=== PATIENT | female | born 1995 | race Asian ===

== ENCOUNTER → 2017-10-13 | Outpatient (CLI) | payer BC ==
--- NOTE | 2017-10-13 15:49 | Diagnostic Imaging Report ---
PROCEDURE: X-RAY CHEST, TWO VIEWS COMPARISON: None. INDICATIONS: TB SCREENING FINDINGS: LUNGS: Clear. Pulmonary vascular markings are normal. PLEURA: No effusions or pneumothorax. HEART \T\ MEDIASTINUM: The cardiomediastinal silhouette is normal. No lymphadenopathy. BONES \T\ SOFT TISSUES: No focal osseous lesions. Soft tissues are unremarkable. CONCLUSION: No acute thoracic abnormality. Dictated by: Yoan Cook M.D. on 10/13/2017 at 15:50 Electronically approved by: Yoan Cook M.D. on 10/13/2017 at 15:50
== END ==
LOC: RAD 14:35
PROVIDERS: ATTEND Specialist
DX: Z11.1 Encounter for screening for respiratory tuberculosis (principal)
CPT/HCPCS: 71046